=== PATIENT | female | born 1945 | race Caucasian/White ===

== ENCOUNTER → 2024-05-15 13:13 | Outpatient (REF) | payer MEDICARE, BC, SELFPAY | LOC: WDC 13:13 | PROVIDERS: ATTENDING PHYSICIAN Obstetrics & Gynecology; FAMILY PHYSICIAN Family Medicine | DX: Z12.31 Encounter for screening mammogram for malignant neoplasm of breast (principal) | CPT/HCPCS: 77063; 77067 ==

== ENCOUNTER → 2025-04-15 14:11 | Outpatient (REF) | payer MEDICARE, BC, SELFPAY | LOC: RAD 14:11 | PROVIDERS: ATTENDING PHYSICIAN Family Medicine | DX: E78.00 Pure hypercholesterolemia, unspecified (principal) | CPT/HCPCS: 75571 ==